=== PATIENT | male | born 2000 | race Caucasian/White ===

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

== ENCOUNTER 2022-04-12 15:51 | Emergency (ER) | payer OTHER ==
--- NOTE | 2022-04-12 17:21 | XR ---
EXAMINATION TYPE: XR chest 2V DATE OF EXAM: 04/12/2022 COMPARISON: 07/19/2019 HISTORY: Cough TECHNIQUE: Frontal and lateral views of the chest are obtained. FINDINGS: There is no focal air space opacity, pleural effusion, or pneumothorax seen. The cardiac silhouette size is within normal limits. The osseous structures are intact. IMPRESSION: No acute cardiopulmonary process.
--- NOTE | 2022-04-12 18:57 | ED ---
URI HPI - General Chief Complaint: Upper Respiratory Infection Stated Complaint: KARISHMA,Cough,congestion Time Seen by Provider: 04/12/22 16:49 Source: patient Mode of arrival: ambulatory Limitations: no limitations - History of Present Illness Initial Comments: Patient is a 22-year-old male presenting with chief complaint of cough. Cough has been ongoing for the last 4 days. Patient is coughing up white phlegm. He admits to some congestion, no sinus pain or pressure. No sore throat or ear pain. He admits to ear pressure. Patient states that after a coughing fit that he has a little difficulty catching his breath, otherwise no difficulty breathing. No chest pain. No abdominal pain, nausea, vomiting, diarrhea. No fever or chills. - Related Data Previous Rx's Medication Instructions Recorded Acetaminophen-Codeine 300-30mg 1 each PO Q4H PRN #12 tablet 12/06/16 [Tylenol #3] Amoxicillin 875 mg PO Q12HR #20 tablet 03/21/18 Amoxicillin 500 mg PO Q8H 7 Days #21 capsule 07/19/19 predniSONE [Deltasone] 20 mg PO DAILY 5 Days #5 tab 07/19/19 Allergies Allergy/AdvReac Type Severity Reaction Status Date / Time No Known Allergies Allergy Verified 04/12/22 16:34 Review of Systems ROS Statement: Those systems with pertinent positive or pertinent negative responses have been documented in the HPI. ROS Other: All systems not noted in ROS Statement are negative. Past Medical History Additional Past Medical History / Comment(s): pyloric stenosis History of Any Multi-Drug Resistant Organisms: None Reported Past Surgical History: Ear Surgery, Plyoromyotomy Past Psychological History: No Psychological Hx Reported Smoking Status: Vaper Past Alcohol Use History: None Reported Past Drug Use History: None Reported General Exam Limitations: no limitations General appearance: alert, in no apparent distress Head exam: Present: atraumatic, normocephalic, normal inspection Eye exam: Present: normal appearance, PERRL, EOMI. Absent: scleral icterus, conjunctival injection, periorbital swelling Neck exam: Present: normal inspection Respiratory exam: Present: normal lung sounds bilaterally. Absent: respiratory distress, wheezes, rales, rhonchi, stridor Cardiovascular Exam: Present: regular rate, normal rhythm, normal heart sounds. Absent: systolic murmur, diastolic murmur, rubs, gallop, clicks Neurological exam: Present: alert, oriented X3, CN II-XII intact Psychiatric exam: Present: normal affect, normal mood Skin exam: Present: warm, dry, intact, normal color. Absent: rash Course Vital Signs 04/12/22 04/12/22 04/12/22 16:32 18:45 19:36 Temperature 98.1 F 98.2 F Pulse Rate 98 92 Respiratory 18 20 20 Rate Blood Pressure 123/72 120/69 O2 Sat by Pulse 97 99 Oximetry Medical Decision Making - Medical Decision Making Patient is a 22-year-old male presenting with chief complaint of cough and c ongestion. Patient has "lost his voice". On examination heart and lungs are clear to auscultation, normal HEENT exam. She is negative for Covid, influenza, RSV. Chest x-ray shows no acute process. Symptoms are likely viral in nature. Educated on supportive treatment. Follow-up with PCP. Report back to ER with any new or worsening symptoms. Discussed return parameters and answered all questions. Patient conveyed verbal understanding and agreed to the plan. I discussed this case in detail with my attending Dr. Farley. - Lab Data Lab Results 04/12/22 Range/Units 16:37 Influenza Type A (PCR) Not Detected (Not Detectd) Influenza Type B (PCR) Not Detected (Not Detectd) RSV (PCR) Not Detected (Not Detectd) SARS-CoV-2 (PCR) Not Detected (Not Detectd) Disposition Clinical Impression: Laryngitis Disposition: HOME SELF-CARE Condition: Good Instructions (If sedation given, give patient instructions): Upper Respiratory Infection (ED) Additional Instructions: Follow-up with PCP. Report back to ER with any new or worsening symptoms. Take Motrin and Tylenol as needed for fever and pain control. Take Mucinex as needed. Stay well-hydrated and get plenty of rest. Is patient prescribed a controlled substance at d/c from ED?: No Referrals: Juliana Flor MD [Primary Care Provider] - 1-2 days Time of Disposition: 18:57
[2022-04-12 19:35] VITALS: RESP 20
[2022-04-12 19:43] VITALS: BP 120/69; PULSE 92; TEMP 98.2
== END 2022-04-12 19:36 | disposition home or self-care (01) ==
LOC: EC 15:51
DX: J04.0 Acute laryngitis (principal); F17.290 Nicotine dependence, other tobacco product, uncomplicated; Z20.822 Contact with and (suspected) exposure to COVID-19
CPT/HCPCS: 71046; 87636; 99284; 99285